=== PATIENT | female | born 1965 | race Caucasian/White ===

== ENCOUNTER 2024-10-11 15:18 | Emergency (ER) | payer MEDICARE, SELFPAY ==
[2024-10-11 15:32] VITALS: BP 114/83; PULSE 99; RESP 18; TEMP 36.6; O2SAT 98
--- NOTE | 2024-10-11 16:05 | ED.SKABFB ---
HPI - Skin/Abscess/Foreign Bdy General Chief complaint: Neck Pain/Injury Stated complaint: Left Side Neck Swelling Time Seen by Provider: 10/11/24 15:50 Source: patient and RN notes reviewed Mode of arrival: ambulatory Limitations: no limitations History of Present Illness HPI narrative: 58-year-old female presents [facility] complaining of neck swelling to the left side since yesterday. Patient reports the swelling started to the back of her neck along the left lateral side. Patient reports worsening swelling, pruritus, and pain. Patient has any fevers body aches and chills, swelling to the lips, face, tongue, throat, any breathing problems or wheezing. Patient has had this happen before but was never evaluated in the [facility] on its own without any issues. Patient has not taken any [id number] to help. Patient denies being stung by an insect, or any changes to medications. Related Data Home Medications ?Medication ?Instructions ?Recorded ?Confirmed ?Last Taken ?Type atorvastatin 10/11/24 Unknown History baclofen 10/11/24 Unknown History diclofenac-capsaicin 10/11/24 Unknown History duloxetine 10/11/24 Unknown History hydroxyzine HCl 10/11/24 Unknown History omeprazole 10/11/24 Unknown History propranolol 10/11/24 Unknown History Allergies Allergy/AdvReac Type Severity Reaction Status Date / Time No Known Allergies Allergy Verified 10/11/24 15:42 Review of Systems Review of Systems: CONSTITUTIONAL: Denies fever, chills, or sweats. EYES: Denies visual changes, redness, or discharge. ENT: Denies rhinorrhea, congestion, sore throat, or otalgia. CARDIOVASCULAR: Denies chest pain, palpitations, or edema. RESPIRATORY: Denies cough or dyspnea. GASTROINTESTINAL: Denies abdominal pain, nausea, vomiting, or diarrhea. GENITOURINARY: Denies dysuria or hematuria. SKIN: Positive for swelling and itching. MUSCULOSKELETAL: Denies back pain, joint pain, or myalgia. NEUROLOGIC: Denies headache, numbness, or weakness. PSYCHIATRIC: Denies anxiety or depression. All other systems reviewed are negative, except as documented in HPI. PMFSH Comments At the time of my signature, I reviewed and agree with the nursing past medical, surgical, social, and family history. There is no relevant family history pertinent to the patient complaint. Exam Narrative: GENERAL: This is a well-nourished, well-developed adult, in no apparent distress. They are non ill-appearing, nontoxic appearing. HEAD: normocephalic, atraumatic. EYES: Sclera clear/white. Conjunctiva normal. Vision is grossly intact. Extraocular movements intact EARS: External ears normal, auditory canals clear and without drainage, TMs normal without perforation. Hearing grossly intact. NOSE: External nose normal with no obvious nasal discharge, nasal turbinates without redness, no rhinorrhea. THROAT: Mucous membranes moist, posterior pharynx clear, without erythema or swelling. Uvula midline. NECK: Neck supple, non-tender without lymphadenopathy, masses or thyromegaly. Trachea midline. Left lateral posterior neck is erythematous and indurated. Is warm and tender to touch. No area of fluctuance, no exudate. CARDIOVASCULAR: Regular rate and rhythm without murmurs, gallops, or rubs. RESPIRATORY: Clear to auscultation. Breath sounds equal bilaterally. No wheezes, rales, or rhonchi. SKIN: warm, Dry, intact with no suspicious lesions or rash, good texture and turgor. NEURO: awake, alert, and oriented to person, place and time. There were no obvious focal neurologic abnormalities. EXTREMITIES: No joint tenderness, effusion, or edema noted. BACK: Nontender without deformity. No CVA tenderness. Course Course Emergency Course: Portions of this record may have been created with voice recognition software Level of Care: Express Care Visit Vital Signs Vital signs: Vital Signs Temperature 97.9 F 10/11/24 15:32 Pulse Rate 99 10/11/24 15:32 Respiratory Rate 18 10/11/24 15:32 Blood Pressure 114/83 10/11/24 15:32 Pulse Oximetry 98 10/11/24 15:32 Oxygen Delivery Room Air 10/11/24 15:32 Temperature 97.9 F 10/11/24 15:32 Pulse Rate 99 10/11/24 15:32 Respiratory Rate 18 10/11/24 15:32 Blood Pressure 114/83 10/11/24 15:32 Pulse Oximetry 98 10/11/24 15:32 Oxygen Delivery Room Air 10/11/24 15:32 Reviewed MDM - Skin/Abscess/Foreign Bdy MDM Narrative Medical decision making narrative: Skin eruption appears to be uticaria however is painful, pruritic and indurated. Will cover cellulitis allergic reaction with prednisone and cephalexin. Advised close follow-up with PCP. Strict ER precautions as this patient especially if the swelling gets worse, she developed breathing problems, wheezing, vomiting swelling to her face, lips, tongue, throat, or any serious concerns. Discussed physical exam findings. Advised supportive measures and signs/symptoms to go to the ER. Pt is appropriate for outpt treatment and f/u. Differential Diagnosis Differential diagnosis: Likely viral exanthem, allergic reaction to drug, cellulitis, insect bites and contact dermatitis Critical Care Time Critical Care Time Critical Care Time: No Discharge Plan Discharge Clinical Impression: Neck swelling, Localized skin eruption Patient Disposition: Home Condition: Stable Instructions: Antibiotic Form, Acute Rash (ED) Additional Instructions: Take prednisone as directed. Take with food. Take cephalexin as directed. You may use cold compresses 20 minutes at a time, few times a day to help with swelling. May take Zyrtec or Claritin as needed for allergies is or itchiness symptoms. May also use Benadryl as needed, Benadryl may make you you drowsy so do not drive or operate machinery while taking Benadryl. Take medications as directed on the bottles. Follow-up PCP in 3-5 days. If you develop worsening swelling, pain, fevers, body aches, chills, breathing problems, wheezing, or any serious concerns please go to the ER immediately. Patient Language: [place] Prescriptions: New prednisone 20 mg tablet 40 mg PO DAILY 5 Days Qty: 10 0RF cephalexin 500 mg capsule 500 mg PO Q6H 7 Days Qty: 28 0RF No Action baclofen hydroxyzine HCl diclofenac-capsaicin atorvastatin duloxetine omeprazole propranolol Follow-up/Referrals: PHYSICIAN,HEM INSPECTOR [Primary Care Provider, Internal Medicine] Time of Disposition: 16:02
== END 2024-10-11 16:05 | disposition home or self-care (01) ==
DX: R22.1 Localized swelling, mass and lump, neck (principal); R21 Rash and other nonspecific skin eruption; I10 Essential (primary) hypertension; E78.00 Pure hypercholesterolemia, unspecified; K21.9 Gastro-esophageal reflux disease without esophagitis; F41.9 Anxiety disorder, unspecified
CPT/HCPCS: 99203; G0463